=== PATIENT | male | born 1980 | race Caucasian/White ===

== ENCOUNTER 2019-09-09 16:01 | Emergency (ER) | payer SELFPAY ==
--- NOTE | 2019-09-09 17:07 | ED ---
Substance Abuse/Use - HPI Summary HPI Summary: Patient is a 39-year-old male who presents emergency department stating he patient treatment for methamphetamine addiction. Patient states he has been using meth for about 3-1/2 years. Patient last used at 3 today. Patient denies any other drug use or alcohol use. Patient denies past medical history. Denies fever, cough, chest pain, shortness of breath, abdominal pain. Times are moderate in severity. No current modifying factors. Denies SI and HI. - History Of Current Complaint Chief Complaint: EDDetoxRequest Stated Complaint: DETOX Time Seen by Provider: 09/09/19 16:41 Hx Obtained From: Patient, Family/[employer] - Allergies/Home Medications Allergies/Adverse Reactions: Allergies Allergy/AdvReac Type Severity Reaction Status Date / Time No Known Allergies Allergy Verified 09/09/19 16:04 Home Medications: Home Medications NK [No Home Medications Reported] 09/09/19 [History Confirmed 09/09/19] PMH/Surg Hx/FS Hx/Imm Hx Previously Healthy: Yes Infectious Disease History: No Infectious Disease History: Denies: Traveled Outside the [place] in Last 30 Days - Family History Known Family History: Positive: Non-Contributory - Social History Occupation: Unemployed Lives: Alone - homeless Alcohol Use: None Substance Use Type: Reports: Cocaine, Marijuana, Other Substance Use Comment - Amount & Last Used: meth Smoking Status (MU): Heavy Every Day Tobacco Smoker Review of Systems Constitutional: Negative Negative: Fever Cardiovascular: Negative Negative: Palpitations, Chest Pain Respiratory: Negative Negative: Shortness Of Breath, Cough Gastrointestinal: Negative Neurological: Negative All Other Systems Reviewed And Are Negative: Yes Physical Exam Triage Information Reviewed: Yes Vital Signs On Initial Exam: Initial Vitals Temp Pulse Resp BP Pulse Ox 98.4 F 109 18 116/82 94 09/09/19 16:04 09/09/19 16:04 09/09/19 16:04 09/09/19 16:04 09/09/19 16:04 Vital Signs Reviewed: Yes Appearance: Positive: Well-Appearing - Pt. sitting up in bed in NAD. Family present. Skin: Positive: Warm, Dry, Other - Numerous scabs to arms. No signs of infection. Head/Face: Positive: Normal Head/Face Inspection Eyes: Positive: Normal, EOMI, NORA Neck: Positive: Supple Respiratory/Lung Sounds: Positive: Clear to Auscultation, Breath Sounds Present Cardiovascular: Positive: Normal, RRR Musculoskeletal: Positive: Normal, Strength/ROM Intact Neurological: Positive: Normal, Alert, Oriented to Person Place, Time, CN Intact II-III Psychiatric: Positive: Affect/Mood Appropriate Procedures - Sedation Patient Received Moderate/Deep Sedation with Procedure: No Diagnostics - Vital Signs Vital Signs Temp Pulse Resp BP Pulse Ox 09/09/19 16:04 98.4 F 109 18 116/82 94 - Laboratory Lab Statement: Any lab studies that have been ordered have been reviewed, and results considered in the medical decision making process. Course/Dx - Course Course Of Treatment: Pt. presenting requesting inpt. tx for meth addiction. Advised pt. we do not provide inpt. drug treatment at [facility] [place]. Pt. notes he is currently homeless. Uncle and cousin in ED. Pt. provided with info to [facility], [facility], [facility] and [facility], and [facility]. Pt. and family comfortable pursuing treatment at one of these facilities. Patient to return to the ER symptoms change or worsen. Patient understands and agrees with plan. - Diagnoses Provider Diagnoses: Drug addiction Discharge ED - Sign-Out/Discharge Documenting (check all that apply): Patient Departure - Discharge Plan Condition: Good Disposition: HOME Patient Education Materials: Methamphetamine Abuse (ED) Referrals: [facility] [Outside] Additional Instructions: Please follow up with one of the inpatient drug facilities you were provided with as soon as possible Return to ER if symptoms change or worsen - Billing Disposition and Condition Condition: GOOD Disposition: Home - Attestation Statements Provider Attestation: I was available for consultation for this patient. I did not evaluate the patient or participate in any medical decision making or disposition decisions unless I am specifically named in the chart as having consulted on the patient. If I have consulted on the patient, please see my own ED note on the patient encounter. Carolin Steele MD
[2019-09-09 18:08] VITALS: BP 134/93
== END 2019-09-09 18:00 | disposition home or self-care (01) ==
LOC: ED 16:01
DX: F15.20 Other stimulant dependence, uncomplicated (principal); F17.200 Nicotine dependence, unspecified, uncomplicated
CPT/HCPCS: 99282